=== PATIENT | male | born 1980 | race Caucasian/White ===

== ENCOUNTER 2019-10-06 01:18 | Emergency (ER) | payer OTHER ==
[~2019-10-06] VITALS: Ht 200.7 cm; Wt 140.6 kg
--- NOTE | 2019-10-06 01:20 | NUR ---
PT [facility] BLS. TAKEN TO BED 2
[2019-10-06 01:22] VITALS: BP 132/75
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
--- NOTE | 2019-10-06 02:28 | NUR ---
DR. JONES EVALUATING AT BEDSIDE.
[2019-10-06 02:55] VITALS: BP 119/75
== END 2019-10-06 02:55 | disposition home or self-care (01) ==
LOC: MED 01:18
DX: F41.9 Anxiety disorder, unspecified (principal); R00.2 Palpitations; F17.210 Nicotine dependence, cigarettes, uncomplicated
CPT/HCPCS: 93005; 99284

== ENCOUNTER 2022-07-01 04:05 | Emergency (ER) | payer OTHER, MEDICAID ==
--- NOTE | 2022-07-01 04:35 | NUR ---
PATIENT LEFT WITHOUT BEING SEEN BY DR. TIRADO. NO FURTHER CARE PROVIDED FOR PATIENT.
--- NOTE | 2022-07-01 04:35 | NUR ---
PER RN ABILIO PT LWBS, PT CHANGED MIND AND LEFT
== END 2022-07-01 04:35 | disposition left against medical advice (07) ==
LOC: MED 04:05
DX: R53.1 Weakness (principal); Z53.21 Procedure and treatment not carried out due to patient leaving prior to being seen by health care provider